=== PATIENT | male | born 1965 | race Caucasian/White ===

== ENCOUNTER → 2017-05-18 | Outpatient (CLI) | payer BC ==
--- NOTE | 2017-05-21 19:07 | PCVCIMAG ---
APPROVED REPORT Exam: Stress Echocardiogram Indication: Chest pain, HLP Stress Nurse: Yuliana Vernon RN Status: routine HR: 74 bpm Rhythm: NSR Medical History Cardiac Risk Factors: Hyperlipidemia Procedure The patient underwent an Exercise Stress Test using the [place] Protocol. Blood pressure, heart rate, and EKG were monitored. An Echocardiogram was performed by paintless dent repair technician in four stages in quad fashion. At peak stress, four selected images were obtained and placed side by side with resting images for comparison. Stress Test Details Stress Test: Exercise stress testing was performed using a [place] protocol. HR Resting HR: 74 bpmMax Heart Rate (APMHR): 168 bpm Max HR Achieved: 181 bpmTarget HR (85% APMHR): 142 bpm % of APMHR: 107 Recovery HR: 122 bpm HR response to stress: Normal HR response to stress BP Resting BP: 142/80 mmHg Max BP: 194/84 mmHg Recovery BP: 150/82 mmHg ECG Resting ECG: Sinus Rhythm Stress ECG: Sinus Rhythm ST Change: Normal Arrhythmia: Occasional isolated PVCs Recovery ECG: Sinus Rhythm Recovery Arrhythmia: None Clinical Reason for Termination: Maximal effort Stress Symptoms: None Exercise duration: 14 min sec Highest Stage Achieved: Stage 5: 5.0 mph at 18% grade. Exercise capacity: 17.5 METs Overall Exercise Capacity for Age: Good Pre-Stress Echo The resting Echocardiogram showed normal left ventricular contractility with an estimated Ejection Fraction of about >55%. Normal wall motion in all segments on baseline images. Post-Stress Echo The stress Echocardiogram showed normal left ventricular contractility with an estimated Ejection Fraction of about 65-70%. Normal augmentation of wall motion in all segments on post stress images. Clinical Mild MR and AI with mildly dilated ascending aorta measuring 4.1 cm and aortic sinus of valsalva 4.3 licensing specialist clinical or ECG evidence for ischemia. Conclusion Clinical Response: Non-ischemic Exercise Capacity: Superior Stress ECG Response: Non-ischemic Stress Echo Images: Non-ischemic Mild MR and AI with mildly dilated ascending aorta measuring 4.1 cm and aortic sinus of valsalva 4.3 cm. Other Information Study Quality: Good <Conclusion> Mild MR and AI with mildly dilated ascending aorta measuring 4.1 cm and aortic sinus of valsalva 4.3 cm.
== END | disposition home or self-care (01) ==
LOC: PCVCIMAG 14:52
PROVIDERS: ATTEND Internal Medicine
DX: I49.3 Ventricular premature depolarization (principal); I77.819 Aortic ectasia, unspecified site; E78.5 Hyperlipidemia, unspecified
CPT/HCPCS: 93325; 93351